=== PATIENT | male | born 1940 | race Two or more races ===

== ENCOUNTER 2024-05-22 06:05 | Day surgery (SDC) | payer MEDICARE, SELFPAY ==
[2024-05-04 13:59] VITALS: BMI 25.7
[2024-05-04 14:36] LABS: Hematocrit 39.2 % (39.0-52.0); Hemoglobin 13.7 g/dL (13.0-18.0); Mean Corp Hgb Conc. 34.9 g/dL (33.0-37.0); Mean Corpuscular Hgb 29.8 pg (27.0-31.0); Mean Corpuscular Volume 85.4 fL (80.0-94.0); Mean Platelet Volume 10.1 fL (7.4-10.4); Platelet Count 233 10^3/uL (130-400); Red Blood Cell Count 4.59 10^6/uL (4.70-6.10); Red Cell Dist. Width 13.6 % (11.5-14.5); White Blood Cell Count 7.4 10^3/uL (4.8-10.8)
[2024-05-04 14:52] LABS: ALT (SGPT) 29 U/L (0-50); AST (SGOT) 33 U/L (17-59); Albumin 4.8 g/dl (3.5-5.0); Alkaline Phosphatase 62 U/L (38-126); Blood Urea Nitrogen 21 mg/dl (9-20); Calcium 9.5 mg/dl (8.4-10.2); Carbon Dioxide 22 mmol/L (22-30); Chloride 101 mmol/L (98-107); Estimated Creatinine Clearance 58 ml/min; Glucose 99 mg/dl (70-99); Potassium 4.4 mmol/L (3.5-5.1); Sodium 139 mmol/L (135-145); Total Bilirubin 0.9 mg/dl (0.2-1.3); Total Protein 6.8 g/dl (6.3-8.2); eGFR > 60.00
[2024-05-05 09:03] LABS: Glycohemoglobin (HgbA1c) 5.8 % (4.0-5.6)
--- NOTE | 2024-05-15 12:23 | VNURNOTE ---
Patient is scheduled for an elective L TKA on 05/22/[address] Foy. He is a same day patient. Spoke with patient prior to surgery. Introduced role of [facility] liaison.
Patient reports that he lives with his in a MULTI story home.
There are 0 KEVIN if going through the garage.
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 He currently functions independently. He has a cane and rolling walker.
His had VN services after her hip surgeries. The patient has had orthopedic surgeries in the past at an outside hospital.
PCP is Dr Shirley.
Discussed orthopedic program and post surgical plans.
Reviewed that he will have VN services initially and will then start outpatient PT.
Patient selects [facility] for his home care needs. Outpatient PT location to be determined.
Instructed patient to bring walker with him day of surgery.
[facility] Referral placed in [facility].
Patient is in agreement with plan and states that his will be home with him.
Plan: [facility] home w/ [facility]
[2024-05-17 13:31] VITALS: BMI 25.7
[2024-05-22] VITALS (14 sets, daily range): BP systolic 106–159; BP diastolic 59–92; PULSE 67; O2SAT 95; BMI 25.7
[2024-05-22] MEDS: CELEBREX 200 MG PO (06:35)
[2024-05-22] MEDS: TYLENOL 650 MG PO (06:35)
[2024-05-22] MEDS: NORMOSOL-R/PLASMALYTE-A 1000 IV (06:35)
[2024-05-22] MEDS: ANCEF 5 IV (11:17)
[2024-05-22] MEDS: FLOMAX 0.4 MG PO (12:09)
== END 2024-05-22 13:00 | disposition home or self-care (01) ==
LOC: SDS 06:05
PROVIDERS: ATTENDING PHYSICIAN Specialist; FAMILY PHYSICIAN Family Medicine; OTHER PHYSICIAN Internal Medicine Cardiovascular Disease
DX: M17.12 Unilateral primary osteoarthritis, left knee (principal)
CPT/HCPCS: 27447; 36415; 73560; 80053; 83036; 85027; 87070; 93005; 97162; C1713; C1776

== ENCOUNTER → 2024-06-20 14:07 | Outpatient (REF) | payer MEDICARE, SELFPAY | LOC: RAD 14:07 | PROVIDERS: ATTENDING PHYSICIAN Physician Assistant Medical; FAMILY PHYSICIAN Family Medicine | DX: M79.662 Pain in left lower leg (principal); M79.89 Other specified soft tissue disorders | CPT/HCPCS: 93971 ==

== ENCOUNTER 2024-09-11 05:58 | Day surgery (SDC) | payer MEDICARE, SELFPAY ==
--- NOTE | 2024-08-29 10:12 | VNURNOTE ---
Patient is scheduled for an elective R TKR on 09/11/24- he is a same day patient with Dr Foy. Spoke with patient prior to surgery. Introduced role of [facility] Liaison. Patient reports that he lives with his in a MULTI story home.
There are 12 steps to enter and a flight of steps to the second floor.
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 He currently functions independently. He has a cane and rolling walker.
He had VN services after his prior TKR and was same day surgery.
PCP is Dr Shirley
Discussed [facility] joint protocol and post surgical plans.
Reviewed that he will have VN services initially and will then start outpatient PT.
Patient selects [facility] for his home care needs and will go to [facility] on 09/14.
Patient is in agreement with plan and states that his will be home with him. Advised to bring RW with him day of surgery. [facility]
Plan: [facility] per [facility] joint protocol 09/11 then outpt PT on 09/14
[2024-09-01 11:26] LABS: Hematocrit 41.7 % (39.0-52.0); Hemoglobin 13.8 g/dL (13.0-18.0); Mean Corp Hgb Conc. 33.1 g/dL (33.0-37.0); Mean Corpuscular Hgb 28.6 pg (27.0-31.0); Mean Corpuscular Volume 86.5 fL (80.0-94.0); Mean Platelet Volume 9.6 fL (7.4-10.4); Platelet Count 247 10^3/uL (130-400); Red Blood Cell Count 4.82 10^6/uL (4.70-6.10); White Blood Cell Count 8.1 10^3/uL (4.8-10.8)
[2024-09-01 12:05] LABS: ALT (SGPT) 26 U/L (0-50); AST (SGOT) 30 U/L (17-59); Albumin 4.5 g/dl (3.5-5.0); Alkaline Phosphatase 77 U/L (38-126); Blood Urea Nitrogen 17 mg/dl (9-20); Calcium 9.1 mg/dl (8.4-10.2); Carbon Dioxide 27 mmol/L (22-30); Chloride 102 mmol/L (98-107); Glucose 96 mg/dl (70-99); Potassium 5.1 mmol/L (3.5-5.1); Sodium 138 mmol/L (135-145); Total Bilirubin 0.7 mg/dl (0.2-1.3); Total Protein 6.8 g/dl (6.3-8.2); eGFR > 60.00
[2024-09-01 13:09] VITALS: BMI 29.2
[2024-09-01 14:04] LABS: Glycohemoglobin (HgbA1c) 5.8 % (4.0-5.6)
[2024-09-04 10:54] VITALS: BMI 29.2
[2024-09-11] VITALS (11 sets, daily range): BP systolic 91–158; BP diastolic 49–82; BMI 29.2
--- NOTE | 2024-09-11 06:37 | W.DS.TRANS ---
DC Summary - Gas Welder Apprentice
-
Discharge Instructions:
Sleep Apnea Risk Intermediate
Discharge Diagnosis/Procedures R TKA 09/11/25
Diet As tolerated
Activity With Walker
Driving Restrictions No driving
Bathing Restrictions OK to Shower
Other Services PT
Instructions:
Stand-Alone Forms: SDS Total Hip and Knee D/C
Changes to Home Medications: Yes
Discharge Medications:
DC Medications w/original date entered in [email or web address]
ascorbic acid (vitamin C) 1,000 mg tablet (Vitamin C) 1 g PO DAILY 05/17/24
atorvastatin 40 mg tablet 40 mg PO HS 05/17/24
cholecalciferol (vitamin D3) 125 mcg (5,000 unit) tablet (Vitamin D3) 125 mcg PO DAILY 05/17/24
coenzyme Q10 100 mg capsule (Co Q-10) 100 mg PO DAILY 05/17/24
diphenhydramine HCl 25 mg capsule (Benadryl) 25 mg PO HS 05/17/24
latanoprost 0.005 % eye drops 1 drp ophthalmic (eye) HS 05/17/24
lorazepam 1 mg tablet 1 mg PO HS sleep 05/17/24
metoprolol succinate 100 mg tablet,extended release 24 hr 100 mg PO HS 05/17/24
glucosamine sulf dipot chlr,msm,chond 550 mg-C 30 mg-carl 1 mg capsule (Glucosamine Chondroitin) 2 cap PO DAILY 08/29/24
multivitamin 1 tab PO DAILY 08/29/24
omega 3-gzw-kso-fish oil 1,200 mg (144 mg-216 mg) capsule (Fish Oil) 1 cap PO DAILY 08/29/24
turmeric root extract 500 mg tablet 1,500 mg PO DAILY 08/29/24
dexamethasone 4 mg tablet 4 mg PO BID inflammation #6 tabs 09/01/24
meloxicam 15 mg tablet 15 mg PO DAILY anti-inflammatory #14 tabs 09/01/24
mupirocin 2 % topical ointment 1 applic topical BID infection prevention #1 tube 09/01/24
oxycodone 5 mg tablet 5 mg PO Q6H PRN 1 tab moderate pain, 2 tabs severe pain #30 tabs 09/01/24
tamsulosin 0.4 mg capsule 0.4 mg PO HS #7 caps 09/01/24
aspirin 325 mg tablet 325 mg PO DAILY blood clot prevention #1 tab 09/11/24
docusate sodium 100 mg capsule (Colace) 100 mg PO BID stool softner #1 cap 09/11/24
magnesium hydroxide 400 mg/5 mL oral suspension (Milk of Magnesia) 30 ml PO HS PRN Constipation #1 mL 09/11/24
sennosides 8.6 mg tablet (Senokot) 17.2 mg (2 x 8.6 mg) PO BID laxative #2 tabs 09/11/24
Home Medication Changes
dexamethasone 4 mg tablet 4 mg PO BID inflammation #6 tabs 09/01/24
meloxicam 15 mg tablet 15 mg PO DAILY anti-inflammatory #14 tabs 09/01/24
mupirocin 2 % topical ointment 1 applic topical BID infection prevention #1 tube 09/01/24
oxycodone 5 mg tablet 5 mg PO Q6H PRN 1 tab moderate pain, 2 tabs severe pain #30 tabs 09/01/24
tamsulosin 0.4 mg capsule 0.4 mg PO HS #7 caps 09/01/24
aspirin 325 mg tablet 325 mg PO DAILY blood clot prevention #1 tab 09/11/24
docusate sodium 100 mg capsule (Colace) 100 mg PO BID stool softner #1 cap 09/11/24
magnesium hydroxide 400 mg/5 mL oral suspension (Milk of Magnesia) 30 ml PO HS PRN Constipation #1 mL 09/11/24
sennosides 8.6 mg tablet (Senokot) 17.2 mg (2 x 8.6 mg) PO BID laxative #2 tabs 09/11/24
Pending Results: No
[2024-09-11] MEDS: TYLENOL 650 MG PO (06:40)
[2024-09-11] MEDS: CELEBREX 200 MG PO (06:40)
[2024-09-11] MEDS: NORMOSOL-R/PLASMALYTE-A 1000 IV (06:40)
[2024-09-11] MEDS: FLOMAX 0.4 MG PO (06:48)
[2024-09-11] MEDS: CYKLOKAPRON 650 MG PO (09:57)
[2024-09-11] MEDS: ANCEF 5 IV (11:32)
== END 2024-09-11 12:35 | disposition home or self-care (01) ==
LOC: SDS 05:58
PROVIDERS: ATTENDING PHYSICIAN Specialist; FAMILY PHYSICIAN Family Medicine; OTHER PHYSICIAN Physician Assistant Medical
DX: M17.11 Unilateral primary osteoarthritis, right knee (principal)
CPT/HCPCS: 27447; 36415; 73560; 80053; 83036; 85027; 87070; 97162; C1713; C1776